=== PATIENT | female | born 1985 ===

== ENCOUNTER 2018-08-02 06:48 | Inpatient (IN) | payer OTHER ==
[2018-08-02] MEDS ORDERED: Sodium Chloride 0.9% 1,000 ML IV ONE ×2 (07:40→09:20)
[2018-08-02] MEDS ORDERED: Sodium Chloride 0.9% 1,000 ML ONE (07:52)
[2018-08-02 08:13] LABS: BASO % 0.3 % (0.0-2.0); HEMOGLOBIN 12.7 g/dL (11.0-16.0); LYMPH # 0.6 K/uL (1.0-4.3); MEAN CELL VOLUME 86.4 fL (81.0-99.0); MEAN CORPUSCULAR HEMOGLOBIN 29.3 pg (27.0-31.0); MEAN CORPUSCULAR HGB CONC 33.9 g/dL (33.0-37.0); MEAN PLATELET VOLUME 7.6 fL (7.2-11.7); MONO # 0.5 K/uL (0.0-0.8); MONO % 3.9 % (0.0-10.0); NEUT % 90.8 % (50.0-75.0); PLATELET COUNT 308 K/uL (130-400); RBC 4.32 Mil/uL (3.80-5.20); RED CELL DISTRIBUTION WIDTH 13.6 % (11.5-14.5); WHITE BLOOD COUNT 12.1 K/uL (4.8-10.8)
[2018-08-02] MEDS ORDERED: Iodixanol 320 MG/ML 100 ML BOTTLE IV ONE (08:17)
[2018-08-02 08:25] LABS: SQUAMOUS EPITHIAL 1 /hpf (0-5); URINE BILIRUBIN NEGATIVE (NEGATIVE); URINE BLOOD 3+ (NEGATIVE); URINE CLARITY Hazy (Clear); URINE COLOR Amber (YELLOW); URINE GLUCOSE (UA) NORMAL (Normal); URINE LEUKOCYTE ESTERASE NEG Leu/uL (Negative); URINE PROTEIN 2+ mg/dL (NEGATIVE)
[2018-08-02 08:28] LABS: HCG,QUALITATIVE URINE NEGATIVE (NEGATIVE)
[2018-08-02 08:31] LABS: ALB/GLOB RATIO 1.2 (1.0-2.1); ALBUMIN 4.1 g/dL (3.5-5.0); ALT/SGPT 19 U/L (9-52); AST/SGOT 12 U/L (14-36); BLOOD UREA NITROGEN 8 mg/dL (7-17); CALCIUM 8.3 mg/dl (8.6-10.4); GFR NON-AFRICAN AMERICAN > 60; LIPASE 16 U/L (23-300)
--- NOTE | 2018-08-02 08:31 | C.PDOC ---
History Of Present Illness The patient reports diffuse abdominal pain which is associated with fever, non- bloody vomiting, and bodyaches which started last night. Denies diarrhea, travel, back pain, symptoms, or any other associated symptoms. No other compl aints at this time. Time Seen by Provider: 08/02/18 07:16 Chief Complaint (Nursing): Fever History Per: Patient History/Exam Limitations: no limitations Past Medical History Reviewed: Historical Data, Nursing Documentation, Vital Signs Vital Signs: Last Vital Signs Temp 101.3 F H 08/02/18 07:10 Pulse 133 H 08/02/18 07:10 Resp 20 08/02/18 07:10 BP 117/79 08/02/18 07:10 Pulse Ox 100 08/02/18 07:10 Family History: States: No Known Family Hx - Social History Hx Alcohol Use: Yes Hx Substance Use: No Review Of Systems Constitutional: Positive for: Fever, Malaise Cardiovascular: Negative for: Chest Pain Respiratory: Negative for: Shortness of Breath Gastrointestinal: Positive for: Nausea, Vomiting Musculoskeletal: Negative for: Back Pain Neurological: Negative for: Weakness, Numbness Physical Exam - Physical Exam Appears: Non-toxic, No Acute Distress (Moderate painful distress) Skin: Warm, Diaphoretic, No Rash Head: Atraumatic, Normacephalic Eye(s): bilateral: Normal Inspection Nose: Normal Oral Mucosa: Moist Lips: Normal Appearing Neck: Normal ROM Chest: Symmetrical Cardiovascular: Rhythm Regular, No Murmur Respiratory: Normal Breath Sounds, No Accessory Muscle Use Gastrointestinal/Abdominal: Soft, Tenderness (moderate, lower quadrant) Extremity: Normal ROM, No Deformity Neurological/Psych: Oriented x3, Normal Speech ED Course And Treatment - Laboratory Results Result Diagrams: 08/02/18 08:04 08/02/18 08:04 O2 Sat by Pulse Oximetry: 100 Pulse Ox Interpretation: Normal (RA) Medical Decision Making Medical Decision Making: Case was discussed with surgery deshaun, surgery resident has evaluated the patient at bedside and state it may be ruptured appendicitis vs. tubovarian abscess. Transvaginal ultrasound ordered. Zosyn IV ordered for possible ruptured AP. Patient was placed NPO. The case was discussed with Dr. Pearl Kemp (OBGYN deshaun) who has evaluated the patient at bedside and agrees to take the patient to the OR. Disposition - Disposition Disposition: HOSPITALIZED Disposition Time: 15:32 Condition: SERIOUS Forms: [facility] (Turkish) - POA Present On Arrival: None - Clinical Impression Clinical Impression: Tubo-ovarian abscess, Bandemia - Scribe Statement The provider has reviewed the documentation as recorded by the Scribe (Isreal Marcus) All medical record entries made by the Scribe were at my direction and personally dictated by me. I have reviewed the chart and agree that the record accurately reflects my personal performance of the history, physical exam, [facility] decision making, and the department course for this patient. I have also personally directed, reviewed, and agree with the discharge instructions and disposition.
[2018-08-02 08:45] LABS: ANISOCYTOSIS SLIGHT; BANDS 14 % (0-2); GIANT PLATELETS PRESENT; LARGE PLATELETS PRESENT; LYMPHOCYTE 4 % (20-40); MONOCYTE 7 % (0-10); NEUTROPHIL 75 % (50-75); PLATELET ESTIMATE NORMAL (NORMAL); TOTAL CELLS COUNTED 100
[2018-08-02 08:46] LABS: TOXIC GRANULATION PRESENT
--- NOTE | 2018-08-02 09:02 | RAD ---
Date of service: 08/02/2018 HISTORY: abd pain, fever COMPARISON: None available. FINDINGS: Patient rotated toward the right. LUNGS: No active pulmonary disease. PLEURA: No significant pleural effusion identified, no pneumothorax apparent. CARDIOVASCULAR: No aortic atherosclerotic calcification present. Normal cardiac size. No pulmonary vascular congestion. OSSEOUS STRUCTURES: No significant abnormalities. VISUALIZED UPPER ABDOMEN: Normal. OTHER FINDINGS: None. IMPRESSION: No acute cardiopulmonary disease appreciated. Patient rotated toward the right.
[2018-08-02 09:30] LABS: VENOUS BLOOD GAS BASE EXCESS -2.4 mmol/L (0.0-2.0); VENOUS BLOOD GAS PCO2 42 mmHg (40-60); VENOUS BLOOD GAS PO2 32 mm/Hg (30-55); VENOUS BLOOD PH 7.35 (7.32-7.43)
--- NOTE | 2018-08-02 10:41 | CT ---
Date of service: 08/02/2018 PROCEDURE: CT Abdomen and Pelvis with contrast HISTORY: diffuse abd pain, fever, vomiting COMPARISON: None. TECHNIQUE: Following the intravenous administration of iodinated contrast material, a CT examination of the abdomen and pelvis performed from the domes of the diaphragms to the symphysis pubis with reformatted datasets provided in axial, sagittal and coronal planes. Oral contrast was not administered as per referring physician request. Coronal and sagittal reformats were generated. contrast dose: Visipaque 320, 100 cc Radiation dose: Total exam DLP = 312.09 mGy-cm. This CT exam was performed using one or more of the following dose reduction techniques: Automated exposure control, adjustment of the mA and/or kV according to patient size, and/or use of iterative reconstruction technique. FINDINGS: LOWER THORAX: Unremarkable. LIVER: Unremarkable. No gross lesion or ductal dilatation. GALLBLADDER AND BILE DUCTS: Unremarkable. PANCREAS: Unremarkable. No gross lesion or ductal dilatation. SPLEEN: Unremarkable. ADRENALS: Unremarkable. No mass. KIDNEYS AND URETERS: Tiny lucency lower pole right kidney too small to characterize. Left kidney appears unremarkable. No obstructive uropathy bilaterally or perinephric reactive change. VASCULATURE: Unremarkable. No aortic aneurysm. No aortic atherosclerotic calcification or mural plaque present. BOWEL: Evaluation of the gastrointestinal tract is compromised due to the lack of oral contrast administration. No bowel obstruction or free intra peritoneal gas collection identified. However, there is a low-density structure with peripheral enhancement identified at the right hemipelvis lateral to the uterus measuring 5.4 x 6.3 x 7.5 cm. Further there is mild thickening of small bowel probably admitted distal segments suggestive of enteritis. Evaluation of the colon is limited however trace pericolic reaction is seen in both pericolic gutters with fluid noted at the left. Is unclear whether this is related to enteritis or potential colitis. The differential diagnosis for the right-sided pelvic finding is abscess or tubo-ovarian abscess, ruptured appendicitis (not favored) and right adnexal neoplasm which is felt to be unlikely APPENDIX: Not identified. LYMPH NODES: Unremarkable. No enlarged lymph nodes. BLADDER: Unremarkable. REPRODUCTIVE: Inhomogeneous uterine enhancement may reflect uterine fibroid disease. Follow-up pelvic ultrasonography can confirm. BONES: No acute fracture. OTHER FINDINGS: None. IMPRESSION: 7.5 cm lesion with peripheral soft tissue and enhancement suspicious for potential abscess. Segmental enteritis is also suggested with enterocolitis possible though not definitive. Lack of oral contrast agents compromise the evaluation. Etiology the abscess is unclear but could reflect tubo-ovarian abscess, ruptured appendicitis or bowel related abscess. Further clinical correlation is advised.
[2018-08-02] MEDS ORDERED: Piperacillin/Tazobact 3.375 gm 100 ML IV STA (10:59)
[2018-08-02] MEDS ORDERED: Piperacillin/Tazobact 3.375 gm 100 ML IVPB ONE (11:18)
[2018-08-02] MEDS ORDERED: metroNIDAZOLE IV 500 mg/100 ml 500 MG/100 ML BAG IVPB SCH (13:15)
[2018-08-02] MEDS: Piperacillin/Tazobact 3.375 GM in Sodium Chloride 100 ML IVPB SCH ×2 (14:53→19:00)
--- NOTE | 2018-08-02 14:55 | CP.PCM.CON ---
<Sophie Rodrigues - Last Filed: 08/02/18 14:50> History of Present Illness - History of Present Illness History of Present Illness: Surgery Consult: Dr. Abel Pt is a 33 y/o female, with no PMHx who presented to the ED with abdominal pain and vomiting x 1 day. Pt states that she started having generalized pain last night all over her abdomen and thought the pain would improve. However, this morning she continued to have pain all over but more severe in the umbilical and RLQ regions. She describes the pain as sharp and constant, becoming so painful (8/10) that she vomited 3x this morning, prompting her to come to ED. She reports taking tylenol and "daytime/nighttime cold&flu" medication, but neither helped relieve the pain. She denies any prior similar episodes or recent travel. LMP began yesterday, 08/01/18. In addition to abdominal pain, she reports feeling "feverish" but denies nausea, diarrhea, constipation (last BM this morning), chest pain, SOB, cough, or history of painful/irregular menstruation/urination. In the ER, pt had a CT abdomen/pelvis which showed 7.5cm fluid collection in the RLQ/pelvis of unclear etiology, tubo-ovarian abscess vs ruptured appendicitis cannot be ruled out. Surgery consulted to evaluate. Currently, pt resting comfortably in ER bed. States her abdominal pain has improved (5/10), but still present. Denies any more episodes of vomiting since coming to the ER. Denies other complaints at this time. PMH: denies PSH: umbilical hernia repair (7 yrs ago) All: NKDA Social: denies any current or prior tobacco use; admits to social alcohol consum ption; denies illicit drug use Review of Systems - Review of Systems All systems: reviewed and no additional remarkable complaints except (as per HPI) Past Patient History - Past Social History Smoking Status: Never Smoked - GASTROINTESTINAL Other/Comment: hernia - PSYCHIATRIC Hx Substance Use: No - SURGICAL HISTORY Hx Surgeries: Yes Hx Herniorrhaphy: Yes (umbilical hernia ) Meds Allergies/Adverse Reactions: Allergies Allergy/AdvReac Type Severity Reaction Status Date / Time No Known Allergies Allergy Verified 08/02/18 07:30 - Medications Medications: Current Medications Acetaminophen (Tylenol 325mg Tab) 325 mg PO Q4H PRN PRN Reason: Pain, moderate (4-7) Metronidazole (Flagyl) 500 mg in 100 mls @ 100 mls/hr IVPB Q8H IMAN; Protocol Piperacillin Sod/Tazobactam (Sod 3.375 gm/ Sodium Chloride) 100 mls @ 200 mls/hr IVPB Q6H IMAN; Protocol Ketorolac Tromethamine (Toradol) 30 mg IVP Q6H PRN PRN Reason: Pain, severe (8-10) Ondansetron HCl (Zofran Inj) 4 mg IVP Q4H PRN PRN Reason: Nausea/Vomiting Physical Exam - Constitutional Appears: Well, No Acute Distress - Head Exam Head Exam: ATRAUMATIC, NORMOCEPHALIC - Eye Exam Eye Exam: Normal appearance - ENT Exam ENT Exam: Mucous Membranes Moist - Respiratory Exam Respiratory Exam: NORMAL BREATHING PATTERN - Cardiovascular Exam Cardiovascular Exam: RRR - GI/Abdominal Exam GI & Abdominal Exam: Soft, Tenderness (most pronounced in the RLQ). absent: Distended, Guarding, Rebound - Extremities Exam Extremities exam: Negative for: tenderness - Neurological Exam Neurological exam: Alert, Oriented x3 - Skin Skin Exam: Dry, Warm Results - Vital Signs Recent Vital Signs: Last Vital Signs Temp 98.8 F 08/02/18 10:40 Pulse 91 H 08/02/18 09:56 Resp 18 08/02/18 09:56 BP 121/55 L 08/02/18 09:56 Pulse Ox 100 08/02/18 11:52 - Labs Result Diagrams: 08/02/18 08:04 08/02/18 08:04 Labs: Laboratory Results - last 24 hr 08/02/18 08/02/18 08/02/18 08:04 08:04 08:04 WBC 12.1 H RBC 4.32 Hgb 12.7 Hct 37.3 MCV 86.4 MCH 29.3 MCHC 33.9 RDW 13.6 Plt Count 308 MPV 7.6 Neut % (Auto) 90.8 H Lymph % (Auto) 5.0 L [place] % (Auto) 3.9 Eos % (Auto) 0.0 Baso % (Auto) 0.3 Neut # (Auto) 11.0 H Lymph # (Auto) 0.6 L [place] # (Auto) 0.5 Eos # (Auto) 0.0 Baso # (Auto) 0.0 Neutrophils % (Manual) 75 Band Neutrophils % 14 H* Lymphocytes % (Manual) 4 L Monocytes % (Manual) 7 Toxic Granulation Present Platelet Estimate Normal Large Platelets Present Giant Platelets Present Anisocytosis (manual) Slight pO2 VBG pH VBG pCO2 VBG HCO3 VBG Total CO2 VBG O2 Sat (Calc) VBG Base Excess VBG Potassium Glucose Lactate Sodium 138 Potassium 3.8 Chloride 102 Carbon Dioxide 22 Anion Gap 18 BUN 8 Creatinine 0.6 L Est GFR ( Amer) > 60 Est GFR (Non-Af Amer) > 60 Random Glucose 131 H Calcium 8.3 L Total Bilirubin 1.8 H AST 12 L ALT 19 Alkaline Phosphatase 45 Total Protein 7.4 Albumin 4.1 Globulin 3.3 Albumin/Globulin Ratio 1.2 Lipase 16 L Venous Blood Potassium Urine Color Madisyn Urine Clarity Hazy Urine pH 5.0 Ur Specific [place] 1.031 H Urine Protein 2+ H Urine Glucose (UA) Normal Urine Ketones Trace Urine Blood 3+ H Urine Nitrate Negative Urine Bilirubin Negative Urine Urobilinogen 4.0 H Ur Leukocyte Esterase Neg Urine WBC (Auto) 5 Urine RBC (Auto) 3744 H Ur Squamous Epith Cells 1 Urine HCG, Qual Negative Influenza Typ A,B (EIA) 08/02/18 08/02/18 09:27 10:19 WBC RBC Hgb Hct MCV MCH MCHC RDW Plt Count MPV Neut % (Auto) Lymph % (Auto) [place] % (Auto) Eos % (Auto) Baso % (Auto) Neut # (Auto) Lymph # (Auto) [place] # (Auto) Eos # (Auto) Baso # (Auto) Neutrophils % (Manual) Band Neutrophils % Lymphocytes % (Manual) Monocytes % (Manual) Toxic Granulation Platelet Estimate Large Platelets Giant Platelets Anisocytosis (manual) pO2 32 VBG pH 7.35 VBG pCO2 42 VBG HCO3 22.0 VBG Total CO2 24.5 VBG O2 Sat (Calc) 70.1 H VBG Base Excess -2.4 L VBG Potassium 3.5 L Glucose 125 H Lactate 1.1 Sodium 136.0 Potassium Chloride 107.0 Carbon Dioxide Anion Gap BUN Creatinine Est GFR ( Amer) Est GFR (Non-Af Amer) Random Glucose Calcium Total Bilirubin AST ALT Alkaline Phosphatase Total Protein Albumin Globulin Albumin/Globulin Ratio Lipase Venous Blood Potassium 3.5 L Urine Color Urine Clarity Urine pH Ur Specific [place] Urine Protein Urine Glucose (UA) Urine Ketones Urine Blood Urine Nitrate Urine Bilirubin Urine Urobilinogen Ur Leukocyte Esterase Urine WBC (Auto) Urine RBC (Auto) Ur Squamous Epith Cells Urine HCG, Qual Influenza Typ A,B (EIA) Negative for flu a/b - Imaging and Cardiology CT scan - abdomen Status: Image reviewed by me, Report reviewed by me Assessment & Plan - Assessment and Plan (Free Text) Assessment: 33F with abdominal pain & intra-abdominal fluid collection/abscess as seen on CT, tubo-ovarian abscess vs perforated appendicitis Plan: - after reviewing CT and as per the report, perforated appendicitis less likely - transvaginal US ordered by ER to further evaluate for adnexal pathology - rec radius grinder evaluation - recommend eval by IR for drainage of intra-peritoneal abscess - broad spectrum IV ABX - keep NPO with IVF - serial abdominal exams - d/w Dr. Abel <Scott Abel - Last Filed: 08/05/18 09:19> Meds - Medications Medications: Current Medications Acetaminophen (Tylenol 325mg Tab) 325 mg PO Q4H PRN PRN Reason: Pain, moderate (4-7) Last Admin: 08/04/18 22:10 Dose: 325 mg Piperacillin Sod/Tazobactam (Sod 3.375 gm/ Sodium Chloride) 100 mls @ 200 mls/hr IVPB Q6H IMAN; Protocol Last Admin: 08/05/18 07:08 Dose: 200 mls/hr Metronidazole (Flagyl) 500 mg in 100 mls @ 100 mls/hr IVPB Q8H IMAN; Protocol Last Admin: 08/05/18 08:45 Dose: 100 mls/hr Morphine Sulfate (Morphine) 4 mg IVP Q4 PRN PRN Reason: Pain, moderate (4-7) Ondansetron HCl (Zofran Inj) 4 mg IVP Q4H PRN PRN Reason: Nausea/Vomiting Pantoprazole Sodium (Protonix Ec Tab) 40 mg PO DAILY IMAN Last Admin: 08/05/18 09:12 Dose: 40 mg Results - Vital Signs Recent Vital Signs: Last Vital Signs Temp 98 F 08/04/18 16:00 Pulse 71 08/04/18 16:00 Resp 18 08/04/18 16:00 BP 106/68 08/04/18 16:00 Pulse Ox 100 08/04/18 16:00 - Labs Result Diagrams: 08/04/18 08:34 08/04/18 08:34 Labs: Laboratory Results - last 24 hr 08/04/18 08:34 CA 125 Antigen 543 H Assessment & Plan - Assessment and Plan (Free Text) Assessment: Agree with above. CT imaging reviewed. Tuboovarian asbcess. 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
--- NOTE | 2018-08-02 14:55 | US ---
Date of service: 08/02/2018 PROCEDURE: PELVIC ULTRASONOGRAPHY HISTORY: RLQ/R pelvic pain, ? Tubovarian absces on CT scan. Urine hCG negative. COMPARISON: Abdomen pelvis CT with contrast 08/02/2018. TECHNIQUE: Transabdominal and transvaginal pelvic ultrasound was performed with longitudinal and transverse images submitted for interpretation. FINDINGS: Seen in the right hemipelvis/right adnexal compartment is a complex cystic lesion measuring 7.3 x 6.3 x 5.9 cm corresponding to the CT finding previously. Moderately increased peripheral blood flow is seen in the wall surrounding the complex fluid collection. Both ovaries appear separate from this structure. Occasional arterial spectral tracings are encountered in the holman of this lesion. No serpiginous lucency is appreciate that would suggest dilated infected right adnexal tubules however tubo-ovarian abscess remains in the differential diagnosis. Cystic neoplasm is also included in the differential diagnosis. Bowel related abscess remains in the differential diagnosis. Presence of peripheral arterial blood flow raises the likelihood of tubo-ovarian abscess or potential cystic neoplasm and decrease the likelihood of bowel related abscess. Urine test negative and ectopic gestation unlikely. The uterus is retroverted measuring 7.7 x 6.7 x 5.9 cm with a mid fundal anterior subserosal myoma partially exophytic measuring 2.6 x 1.6 x 2.1 cm, hypoechoic in overall echotexture and well circumscribed. Myometrial lesions. The cervix grossly nonfocal. Endometrium measures 5 mm thickness and is mildly heterogeneous. Cervix is unremarkable and measures 3 cm. Right ovary measures 4.1 x 2.1 x 2.9 cm. Left ovary measures 4.3 x 2.4 x 2.5 cm. Both ovaries exhibit intra-ovarian arterial blood flow with no torsion appreciable. IMPRESSION: 7.3 cm complex cystic lesion with occasional peripheral arterial blood flow seen in the right adnexal compartment suspicious for potential tubo-ovarian abscess or cystic neoplasm, with the latter not favored. Bowel related abscess is also felt to be less likely but still included in the differential diagnosis. Urine test is negative however confirmation via serum beta HCG testing is advised as ectopic gestation is unlikely but requires further evaluation. Solitary subserosal fibroid mid anterior uterine fundus.
[2018-08-02] MEDS ORDERED: Morphine 4 MG/ML VIAL IVP SCH (18:30)
[2018-08-02] MEDS ORDERED: Morphine 4 MG/ML VIAL IVP PRN (19:06)
[2018-08-02] MEDS: metroNIDAZOLE IV 500 mg/100 ml 500 MG/100 ML BAG IVPB SCH (23:48)
--- NOTE | 2018-08-02 23:59 | CP.PCM.HP ---
History of Present Illness - History of Present Illness History of Present Illness: 33 yo G0 with pelvic pain x 2 days with subjective fevers and suspected TOA on U/S Present on Admission - Present on Admission Any Indicators Present on Admission: No Review of Systems - Constitutional Constitutional: Fever - Reproductive: Female Reproductive:Female: Pelvic Pain Past Patient History - Past Social History Smoking Status: Never Smoked - GASTROINTESTINAL Other/Comment: hernia - PSYCHIATRIC Hx Substance Use: No - SURGICAL HISTORY Hx Surgeries: Yes Hx Herniorrhaphy: Yes (umbilical hernia ) Meds Allergies/Adverse Reactions: Allergies Allergy/AdvReac Type Severity Reaction Status Date / Time No Known Allergies Allergy Verified 08/02/18 07:30 Physical Exam - Constitutional Appears: Well - Respiratory Exam Respiratory Exam: Clear to Auscultation Bilateral, NORMAL BREATHING PATTERN - Cardiovascular Exam Cardiovascular Exam: REGULAR RHYTHM - GI/Abdominal Exam GI & Abdominal Exam: Normal Bowel Sounds, Tenderness (to deep palpation on left side) Results - Vital Signs Recent Vital Signs: Last Vital Signs Temp 100.9 F H 08/02/18 21:25 Pulse 123 H 08/02/18 20:00 Resp 18 08/02/18 20:00 BP 110/70 08/02/18 20:00 Pulse Ox 100 08/02/18 20:00 - Labs Result Diagrams: 08/02/18 08:04 08/02/18 08:04 Labs: Laboratory Results - last 24 hr 08/02/18 08/02/18 08/02/18 08:04 08:04 08:04 WBC 12.1 H RBC 4.32 Hgb 12.7 Hct 37.3 MCV 86.4 MCH 29.3 MCHC 33.9 RDW 13.6 Plt Count 308 MPV 7.6 Neut % (Auto) 90.8 H Lymph % (Auto) 5.0 L [place] % (Auto) 3.9 Eos % (Auto) 0.0 Baso % (Auto) 0.3 Neut # (Auto) 11.0 H Lymph # (Auto) 0.6 L [place] # (Auto) 0.5 Eos # (Auto) 0.0 Baso # (Auto) 0.0 Neutrophils % (Manual) 75 Band Neutrophils % 14 H* Lymphocytes % (Manual) 4 L Monocytes % (Manual) 7 Toxic Granulation Present Platelet Estimate Normal Large Platelets Present Giant Platelets Present Anisocytosis (manual) Slight pO2 VBG pH VBG pCO2 VBG HCO3 VBG Total CO2 VBG O2 Sat (Calc) VBG Base Excess VBG Potassium Glucose Lactate Sodium 138 Potassium 3.8 Chloride 102 Carbon Dioxide 22 Anion Gap 18 BUN 8 Creatinine 0.6 L Est GFR ( Amer) > 60 Est GFR (Non-Af Amer) > 60 Random Glucose 131 H Calcium 8.3 L Total Bilirubin 1.8 H AST 12 L ALT 19 Alkaline Phosphatase 45 Total Protein 7.4 Albumin 4.1 Globulin 3.3 Albumin/Globulin Ratio 1.2 Lipase 16 L Venous Blood Potassium Urine Color Madisyn Urine Clarity Hazy Urine pH 5.0 Ur Specific [place] 1.031 H Urine Protein 2+ H Urine Glucose (UA) Normal Urine Ketones Trace Urine Blood 3+ H Urine Nitrate Negative Urine Bilirubin Negative Urine Urobilinogen 4.0 H Ur Leukocyte Esterase Neg Urine WBC (Auto) 5 Urine RBC (Auto) 3744 H Ur Squamous Epith Cells 1 Urine HCG, Qual Negative Influenza Typ A,B (EIA) Blood Type Antibody Screen 08/02/18 08/02/18 08/02/18 09:27 10:19 19:42 WBC RBC Hgb Hct MCV MCH MCHC RDW Plt Count MPV Neut % (Auto) Lymph % (Auto) [place] % (Auto) Eos % (Auto) Baso % (Auto) Neut # (Auto) Lymph # (Auto) [place] # (Auto) Eos # (Auto) Baso # (Auto) Neutrophils % (Manual) Band Neutrophils % Lymphocytes % (Manual) Monocytes % (Manual) Toxic Granulation Platelet Estimate Large Platelets Giant Platelets Anisocytosis (manual) pO2 32 VBG pH 7.35 VBG pCO2 42 VBG HCO3 22.0 VBG Total CO2 24.5 VBG O2 Sat (Calc) 70.1 H VBG Base Excess -2.4 L VBG Potassium 3.5 L Glucose 125 H Lactate 1.1 Sodium 136.0 Potassium Chloride 107.0 Carbon Dioxide Anion Gap BUN Creatinine Est GFR ( Amer) Est GFR (Non-Af Amer) Random Glucose Calcium Total Bilirubin AST ALT Alkaline Phosphatase Total Protein Albumin Globulin Albumin/Globulin Ratio Lipase Venous Blood Potassium 3.5 L Urine Color Urine Clarity Urine pH Ur Specific [place] Urine Protein Urine Glucose (UA) Urine Ketones Urine Blood Urine Nitrate Urine Bilirubin Urine Urobilinogen Ur Leukocyte Esterase Urine WBC (Auto) Urine RBC (Auto) Ur Squamous Epith Cells Urine HCG, Qual Influenza Typ A,B (EIA) Negative for flu a/b Blood Type O POSITIVE Antibody Screen Negative Assessment & Plan - Assessment and Plan (Free Text) Assessment: A/P: 33 yo with suspected TOA - stable, febrile - TOA - 7.3 cm complex cyst suspicious of TOA on U/S - Zosyn and flagyl given - IV fluids - will consult IR for possible drainage Decision To Admit - Pt Status Changed To: Hospital Disposition Of: Inpatient - Admit Certification Admit to Inpatient:: After my assessment, the patient will require hospitalization for at least two midnights. This is because of the severity of symptoms shown, intensity of services needed, and/or the medical risk in this patient being treated as an outpatient. - InPatient: Physician Admission Certification:: OLGA - . Bed Request Type: CRIME ANALYST
[2018-08-03] MEDS: Piperacillin/Tazobact 3.375 GM in Sodium Chloride 100 ML IVPB SCH ×4 (01:13→20:29)
--- NOTE | 2018-08-03 07:55 | CP.PCM.PN ---
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 Reveles Pt seen and examined at bedside this am. States her abd pain has improved from yesterday, rates it as 6/10 compared to 8/10 on admission. Reports pain made worse only with ambulation in room. Last temp 100.9 overnight. Not feeling subjective fevers or chills currently. Denies passing flatus or having bowel movement since admission. States her lower abd pain is elicited when she voids, but denies burning with urination or dysuria. Objective - Vital Signs/Intake and Output Vital Signs (last 24 hours): Temp Pulse Resp BP Pulse Ox 100.9 F H 123 H 18 110/70 100 08/02/18 21:25 08/02/18 20:00 08/02/18 20:00 08/02/18 20:00 08/02/18 20:00 Intake and Output: 08/03/18 08/03/18 06:59 18:59 Intake Total 1900 Balance 1900 - Medications Medications: Current Medications Acetaminophen (Tylenol 325mg Tab) 325 mg PO Q4H PRN PRN Reason: Pain, moderate (4-7) Last Admin: 08/02/18 21:25 Dose: 325 mg Heparin Sodium (Porcine) (Heparin) 5,000 units SC Q12 IMAN Last Admin: 08/02/18 22:03 Dose: 5,000 units Piperacillin Sod/Tazobactam (Sod 3.375 gm/ Sodium Chloride) 100 mls @ 200 mls/hr IVPB Q6H IMAN; Protocol Last Admin: 08/03/18 07:27 Dose: 200 mls/hr Metronidazole (Flagyl) 500 mg in 100 mls @ 100 mls/hr IVPB Q8H IMAN; Protocol Last Admin: 08/02/18 23:48 Dose: 100 mls/hr Morphine Sulfate (Morphine) 4 mg IVP Q4 PRN PRN Reason: Pain, moderate (4-7) Ondansetron HCl (Zofran Inj) 4 mg IVP Q4H PRN PRN Reason: Nausea/Vomiting Pantoprazole Sodium (Protonix Ec Tab) 40 mg PO DAILY IMAN - Labs Labs: 08/02/18 08:04 08/02/18 08:04 - Constitutional Appears: Non-toxic, No Acute Distress - Head Exam Head Exam: ATRAUMATIC, NORMOCEPHALIC - Eye Exam Eye Exam: EOMI, Normal appearance, PERRL - ENT Exam ENT Exam: Mucous Membranes Moist - Respiratory Exam Respiratory Exam: Clear to Ausculation Bilateral, NORMAL BREATHING PATTERN. absent: Rales, Rhonchi, Wheezes - Cardiovascular Exam Cardiovascular Exam: +S1, +S2. absent: Gallop, Rubs, Murmur - GI/Abdominal Exam GI & Abdominal Exam: Distended, Soft, Tenderness, Hypoactive Bowel Sounds. absent: Organomegaly Additional comments: Diffuse tenderness to palpation in right and left lower quadrants on exam - Extremities Exam Extremities Exam: Full ROM, Normal Capillary Refill, Normal Inspection. absent: Calf Tenderness, Pedal Edema - Neurological Exam Neurological Exam: Alert, Awake, CN II-XII Intact, Oriented x3 - Psychiatric Exam Psychiatric exam: Normal Affect, Normal Mood - Skin Skin Exam: Dry, Intact, Normal Color, Warm Assessment and Plan - Assessment and Plan (Free Text) Assessment: 33 y o no PMHx admitted with suspected TOA. Plan: Febrile overnight, otherwise vitals stable currently WBC 12.1, bands 14 on admission; will trend am CBC Urine and blood cxs pending. C/w Zosyn and Flagyl. Abd/pelvis CT 08/02: 7.5 cm lesion w/ peripheral soft tissue and enhancement suspicious for potential abscess. Segmental enteritis also suggested w/ enterocolitis possible though not definitive. Etiology unclear but could reflect tubo-ovarian abscess, ruptured appendicitis, or bowel-releated abscess. Abd/pelvis/transvaginal U/S 08/02: 7.3 cm complex cystic lesion w/ occasional peripheral arterial blood flow seen in R adnexal compartment suspicious for potential tubo-ovarian abscess or cystic neoplasm. Bowel related abscess less likely but still in differential. Solitary subserosal fibroid mid anterior uterine fundus. Tylenol and Morphine prn for pain control. Continue to monitor bowel function. Will keep pt NPO at this time. IR consulted for possible drainage of abscess, recs appreciated. Gen Surgery consulted, recs appreciated. Plan discussed with Dr. Reveles, attending physician. Alec Lynn, PGY-1 <Nora Reveles - Last Filed: 08/05/18 20:32> Objective - Vital Signs/Intake and Output Vital Signs (last 24 hours): Temp Pulse Resp BP Pulse Ox 100.4 F H 90 22 100/61 99 08/03/18 16:00 08/03/18 16:00 08/03/18 16:00 08/03/18 16:00 08/03/18 16:00 Intake and Output: 08/03/18 08/04/18 18:59 06:59 Intake Total 2019 320 Output Total 0 0 Balance 2019 320 - Medications Medications: Current Medications Acetaminophen (Tylenol 325mg Tab) 325 mg PO Q4H PRN PRN Reason: Pain, moderate (4-7) Last Admin: 08/02/18 21:25 Dose: 325 mg Heparin Sodium (Porcine) (Heparin) 5,000 units SC Q12 IMAN Last Admin: 08/03/18 23:33 Dose: 5,000 units Piperacillin Sod/Tazobactam (Sod 3.375 gm/ Sodium Chloride) 100 mls @ 200 mls/hr IVPB Q6H IMAN; Protocol Last Admin: 08/03/18 20:29 Dose: 200 mls/hr Metronidazole (Flagyl) 500 mg in 100 mls @ 100 mls/hr IVPB Q8H IMAN; Protocol Last Admin: 08/03/18 18:33 Dose: 100 mls/hr Morphine Sulfate (Morphine) 4 mg IVP Q4 PRN PRN Reason: Pain, moderate (4-7) Ondansetron HCl (Zofran Inj) 4 mg IVP Q4H PRN PRN Reason: Nausea/Vomiting Pantoprazole Sodium (Protonix Ec Tab) 40 mg PO DAILY IMAN Last Admin: 08/03/18 09:51 Dose: Not Given - Labs Labs: 08/03/18 08:03 08/02/18 08:04 Assessment and Plan - Assessment and Plan (Free Text) Plan: I have seen and examined this patient with Dr. Lynn and agreed with her Progress Note However, after discussing case with Dr. Michelle, Interventional Radiologist who earlier today had agreed to placed a drainage intravaginally in this patient and now, he is not comfortable at this time with performing this procedure, i agreed with his recommendation of continuing IV Antibiotics for another 24 hours since patient is responding very well. Now her pain is 3-4/10, able to walk, her WBC count down to 8.9 and only low grade temps today. Further discussion with Dr. Michelle brings out his impression that Radiologically, this does not appear to be an acute process and the possibility of Neoplasm could not be excluded completely. Ca125 was ordered. Pt states that she has noted that for the past 2-3 months she had irregular menses for the first time with increasing Dysmenorrhea and abdominal bloating that has gotten progressively worse. Denies any Contraceptive use and states that she has a female partner.
[2018-08-03 08:15] LABS: BASO % 0.3 % (0.0-2.0); EOS % 0.3 % (0.0-4.0); LYMPH # 0.9 K/uL (1.0-4.3); LYMPH % 10.3 % (20.0-40.0); MEAN CELL VOLUME 86.7 fL (81.0-99.0); MEAN CORPUSCULAR HEMOGLOBIN 29.1 pg (27.0-31.0); MEAN CORPUSCULAR HGB CONC 33.6 g/dL (33.0-37.0); MEAN PLATELET VOLUME 7.6 fL (7.2-11.7); MONO # 0.6 K/uL (0.0-0.8); NEUT # 7.3 K/uL (1.8-7.0); NEUT % 82.1 % (50.0-75.0); RBC 3.45 Mil/uL (3.80-5.20); RED CELL DISTRIBUTION WIDTH 13.8 % (11.5-14.5); WHITE BLOOD COUNT 8.9 K/uL (4.8-10.8)
[2018-08-03 08:34] LABS: HEMOGLOBIN 10.1 g/dL (11.0-16.0)
[2018-08-03] MEDS: metroNIDAZOLE IV 500 mg/100 ml 500 MG/100 ML BAG IVPB SCH ×2 (08:36→18:33)
[2018-08-03] MEDS: Pantoprazole 40 mg EC Tab PO SCH (09:51)
--- NOTE | 2018-08-03 12:16 | CP.PCM.PN ---
Addendum entered and electronically signed by Rosemary Verde 08/03/18 16:29: Per Dr. Michelle, based on location of collection, conservative treatment with IV Abx is suggested. Addendum entered and electronically signed by Rosemary Verde 08/03/18 16:17: Patient will go for transvaginal IR drainage tomorrow with Dr. Michelle No surgical intervention indicated at this time Please re-consult as needed Original Note: Subjective - Date & Time of Evaluation Date of Evaluation: 08/03/18 Time of Evaluation: 08:25 - Subjective Subjective: surgery progress note for Dr. Abel Patient examined at bedside. No acute events overnight. Patient remained febrile overnight with temps 100-100.9; patient reports chills. Patient reports improvement in pain. Denies SOB, nausea, dysuria, diarrhea. Objective - Vital Signs/Intake and Output Vital Signs (last 24 hours): Temp Pulse Resp BP Pulse Ox 100.9 F H 123 H 18 110/70 100 08/02/18 21:25 08/02/18 20:00 08/02/18 20:00 08/02/18 20:00 08/02/18 20:00 Intake and Output: 08/03/18 08/03/18 06:59 18:59 Intake Total 1900 Output Total 0 Balance 1900 - Medications Medications: Current Medications Acetaminophen (Tylenol 325mg Tab) 325 mg PO Q4H PRN PRN Reason: Pain, moderate (4-7) Last Admin: 08/02/18 21:25 Dose: 325 mg Heparin Sodium (Porcine) (Heparin) 5,000 units SC Q12 IMAN Last Admin: 08/03/18 10:50 Dose: Not Given Piperacillin Sod/Tazobactam (Sod 3.375 gm/ Sodium Chloride) 100 mls @ 200 mls/hr IVPB Q6H IMAN; Protocol Last Admin: 08/03/18 07:27 Dose: 200 mls/hr Metronidazole (Flagyl) 500 mg in 100 mls @ 100 mls/hr IVPB Q8H IMAN; Protocol Last Admin: 08/03/18 08:36 Dose: 100 mls/hr Morphine Sulfate (Morphine) 4 mg IVP Q4 PRN PRN Reason: Pain, moderate (4-7) Ondansetron HCl (Zofran Inj) 4 mg IVP Q4H PRN PRN Reason: Nausea/Vomiting Pantoprazole Sodium (Protonix Ec Tab) 40 mg PO DAILY IMAN Last Admin: 08/03/18 09:51 Dose: Not Given - Labs Labs: 08/03/18 08:03 08/02/18 08:04 - Constitutional Appears: Non-toxic, No Acute Distress - Head Exam Head Exam: ATRAUMATIC, NORMAL INSPECTION, NORMOCEPHALIC - Eye Exam Eye Exam: EOMI, Normal appearance - ENT Exam ENT Exam: Mucous Membranes Moist, Normal Exam - Neck Exam Neck Exam: Normal Inspection - Respiratory Exam Respiratory Exam: Clear to Ausculation Bilateral, NORMAL BREATHING PATTERN - Cardiovascular Exam Cardiovascular Exam: Tachycardia, REGULAR RHYTHM - GI/Abdominal Exam GI & Abdominal Exam: Soft, Tenderness (tender to palpation lower quadrants, right greatest.), Normal Bowel Sounds - Neurological Exam Neurological Exam: Alert, Awake, Oriented x3 - Psychiatric Exam Psychiatric exam: Normal Affect, Normal Mood - Skin Skin Exam: Dry, Intact, Normal Color, Warm Assessment and Plan - Assessment and Plan (Free Text) Assessment: 33 year old female admitted with abdominal pain Plan: -NPO -TVUS report: 7.3 cm complex cyst of right adnexal compartment suspicious for tubo-ovarian abscess -recommending IR drainage -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 Colten Verde, PGY-1
[2018-08-04] MEDS: Piperacillin/Tazobact 3.375 GM in Sodium Chloride 100 ML IVPB SCH ×4 (02:30→19:35)
[2018-08-04] MEDS: metroNIDAZOLE IV 500 mg/100 ml 500 MG/100 ML BAG IVPB SCH ×4 (02:48→23:57)
[2018-08-04 08:34] VITALS: RESP 18
[2018-08-04 08:39] LABS: BASO % 0.4 % (0.0-2.0); EOS # 0.1 K/uL (0.0-0.7); EOS % 1.2 % (0.0-4.0); HEMOGLOBIN 9.7 g/dL (11.0-16.0); LYMPH # 1.3 K/uL (1.0-4.3); LYMPH % 18.1 % (20.0-40.0); MEAN CORPUSCULAR HEMOGLOBIN 29.3 pg (27.0-31.0); MEAN CORPUSCULAR HGB CONC 34.1 g/dL (33.0-37.0); MEAN PLATELET VOLUME 7.6 fL (7.2-11.7); MONO # 0.4 K/uL (0.0-0.8); MONO % 6.1 % (0.0-10.0); NEUT # 5.2 K/uL (1.8-7.0); NEUT % 74.2 % (50.0-75.0); RBC 3.3 Mil/uL (3.80-5.20); RED CELL DISTRIBUTION WIDTH 13.4 % (11.5-14.5)
[2018-08-04 08:49] LABS: INR 1.3; PROTHROMBIN TIME 14.1 SECONDS (9.7-12.2)
[2018-08-04 08:57] LABS: ALBUMIN 3.2 g/dL (3.5-5.0); ALT/SGPT 19 U/L (9-52); AST/SGOT 19 U/L (14-36); BLOOD UREA NITROGEN 6 mg/dL (7-17); CALCIUM 8.7 mg/dl (8.6-10.4); GFR NON-AFRICAN AMERICAN > 60
[2018-08-04] MEDS: Pantoprazole 40 mg EC Tab PO SCH (09:26)
--- NOTE | 2018-08-04 10:12 | CP.PCM.PN ---
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 Clements Pt seen and examined at bedside this am. Denies any acute complaints this am. Tolerating regular diet well, denies n/v. Last temp 100.4 yesterday afternoon, pt denies fevers or chills currently. Ambulating well, pain well controlled, passing flatus, reports 2 positive BMs since admission. Otherwise denies headach e, dizziness, chest pain, sob, urinary complaints, or other symptoms. Objective - Vital Signs/Intake and Output Vital Signs (last 24 hours): Temp Pulse Resp BP Pulse Ox 98.0 F 83 18 108/73 100 08/04/18 08:23 08/04/18 08:23 08/04/18 08:23 08/04/18 08:23 08/04/18 08:23 Intake and Output: 08/04/18 08/04/18 06:59 18:59 Intake Total 320 Output Total 0 Balance 320 - Medications Medications: Current Medications Acetaminophen (Tylenol 325mg Tab) 325 mg PO Q4H PRN PRN Reason: Pain, moderate (4-7) Last Admin: 08/02/18 21:25 Dose: 325 mg Heparin Sodium (Porcine) (Heparin) 5,000 units SC Q12 IMAN Last Admin: 08/04/18 09:11 Dose: 5,000 units Piperacillin Sod/Tazobactam (Sod 3.375 gm/ Sodium Chloride) 100 mls @ 200 mls/hr IVPB Q6H IMAN; Protocol Last Admin: 08/04/18 08:10 Dose: 200 mls/hr Metronidazole (Flagyl) 500 mg in 100 mls @ 100 mls/hr IVPB Q8H IMAN; Protocol Last Admin: 08/04/18 08:45 Dose: 100 mls/hr Morphine Sulfate (Morphine) 4 mg IVP Q4 PRN PRN Reason: Pain, moderate (4-7) Ondansetron HCl (Zofran Inj) 4 mg IVP Q4H PRN PRN Reason: Nausea/Vomiting Pantoprazole Sodium (Protonix Ec Tab) 40 mg PO DAILY REPLACED BY [facility] Last Admin: 08/03/18 09:51 Dose: Not Given - Labs Labs: 08/04/18 08:34 08/04/18 08:34 PT 14.1 SECONDS (9.7-12.2) H 08/04/18 08:34 INR 1.3 08/04/18 08:34 APTT 29 SECONDS (21-34) 08/04/18 08:34 - Constitutional Appears: Non-toxic, No Acute Distress - Head Exam Head Exam: ATRAUMATIC, NORMOCEPHALIC - Eye Exam Eye Exam: EOMI, Normal appearance, PERRL - ENT Exam ENT Exam: Mucous Membranes Moist - Respiratory Exam Respiratory Exam: Clear to Ausculation Bilateral, NORMAL BREATHING PATTERN. absent: Rales, Rhonchi, Wheezes - Cardiovascular Exam Cardiovascular Exam: REGULAR RHYTHM, +S1, +S2. absent: Gallop, Rubs, Murmur - GI/Abdominal Exam GI & Abdominal Exam: Soft, Normal Bowel Sounds. absent: Distended, Firm, Guarding, Rigid, Organomegaly, Rebound Additional comments: Minimal diffuse tenderness to palpation on exam - Extremities Exam Extremities Exam: Full ROM, Normal Capillary Refill, Normal Inspection. absent: Calf Tenderness, Pedal Edema - Back Exam Back Exam: Full ROM, NORMAL INSPECTION. absent: CVA tenderness (L), CVA tenderness (R), muscle spasm, tenderness - Neurological Exam Neurological Exam: Alert, Awake, CN II-XII Intact, Normal Gait, Oriented x3 - Psychiatric Exam Psychiatric exam: Normal Affect, Normal Mood - Skin Skin Exam: Dry, Intact, Normal Color, Warm Assessment and Plan - Assessment and Plan (Free Text) Assessment: 33 y o no PMHx admitted with suspected TOA. Plan: Afebrile currently, vitals stable. Continue to monitor WBC today 7.0, bands resolved. Blood cxs demonstrating no growth after 24 hrs. C/w Zosyn and Flagyl. Abd/pelvis CT 08/02: 7.5 cm lesion w/ peripheral soft tissue and enhancement suspicious for potential abscess. Segmental enteritis also suggested w/ enterocolitis possible though not definitive. Etiology unclear but could reflect tubo-ovarian abscess, ruptured appendicitis, or bowel-releated abscess. Abd/pelvis/transvaginal U/S 08/02: 7.3 cm complex cystic lesion w/ occasional peripheral arterial blood flow seen in R adnexal compartment suspicious for potential tubo-ovarian abscess or cystic neoplasm. Bowel related abscess less likely but still in differential. Solitary subserosal fibroid mid anterior uterine fundus. Tylenol and Morphine prn for pain control; pt states pain is improving since admission Tolerating regular diet Gen Surgery s/o case. C/w medical management. D/c planning pending clinical improvement. Upon discussion with pt it was revealed that she had a umbilical hernia repair and 1 year prior, was treated for a partial SBO with resection in her home [place] [facility]. Pt states that at that time she was having n/v, abd pain, and blood in stool. Pt seen, examined with, and plan d/w Dr. Clements, attending physician. Alec Lynn, DO PGY-1 <Jolynn Clements - Last Filed: 08/04/18 15:09> Objective - Vital Signs/Intake and Output Vital Signs (last 24 hours): Temp Pulse Resp BP Pulse Ox 98.0 F 83 18 108/73 100 08/04/18 08:23 08/04/18 08:23 08/04/18 08:23 08/04/18 08:23 08/04/18 08:23 Intake and Output: 08/04/18 08/04/18 06:59 18:59 Intake Total 320 125 Output Total 0 Balance 320 125 - Medications Medications: Current Medications Acetaminophen (Tylenol 325mg Tab) 325 mg PO Q4H PRN PRN Reason: Pain, moderate (4-7) Last Admin: 08/04/18 12:36 Dose: 325 mg Heparin Sodium (Porcine) (Heparin) 5,000 units SC Q12 IMAN Last Admin: 08/04/18 09:11 Dose: 5,000 units Piperacillin Sod/Tazobactam (Sod 3.375 gm/ Sodium Chloride) 100 mls @ 200 mls/hr IVPB Q6H IMAN; Protocol Last Admin: 08/04/18 13:32 Dose: 200 mls/hr Metronidazole (Flagyl) 500 mg in 100 mls @ 100 mls/hr IVPB Q8H IMAN; Protocol Last Admin: 08/04/18 08:45 Dose: 100 mls/hr Morphine Sulfate (Morphine) 4 mg IVP Q4 PRN PRN Reason: Pain, moderate (4-7) Ondansetron HCl (Zofran Inj) 4 mg IVP Q4H PRN PRN Reason: Nausea/Vomiting Pantoprazole Sodium (Protonix Ec Tab) 40 mg PO DAILY IMAN Last Admin: 08/04/18 09:26 Dose: 40 mg - Labs Labs: 08/04/18 08:34 08/04/18 08:34 PT 14.1 SECONDS (9.7-12.2) H 08/04/18 08:34 INR 1.3 08/04/18 08:34 APTT 29 SECONDS (21-34) 08/04/18 08:34 Attending/Attestation - Attestation I have personally seen and examined this patient.: Yes I have fully participated in the care of the patient.: Yes I have reviewed all pertinent clinical information, including history, physical exam and plan: Yes Notes (Text): 08/04/18 15:04 Patient seen and evaluated by me with the Resident. I agree with the above. NB: Patient appears to have had some form of GI surgery with resection, after the presentation as described above. Patient is clinically improved. It was impressed upon the patient, in light of solid component to right ovarian/adnexal process, follow up on discharge should be at the hands of salvage engineering technician oncology in the unlikely event of even low malignant potential finding. Patient expressed an understanding and agrees. No questions offered. Patient is clinically stable.
[2018-08-05] MEDS: Piperacillin/Tazobact 3.375 GM in Sodium Chloride 100 ML IVPB SCH ×3 (01:59→14:00)
[2018-08-05] MEDS: metroNIDAZOLE IV 500 mg/100 ml 500 MG/100 ML BAG IVPB SCH ×2 (08:45→16:00)
[2018-08-05] MEDS: Pantoprazole 40 mg EC Tab PO SCH (09:12)
--- NOTE | 2018-08-05 13:24 | CP.PCM.DIS ---
<Alec Lynn - Last Filed: 08/05/18 16:01> Provider - Provider Date of Admission: 08/02/18 18:42 Attending physician: Gene Kemp DO Primary care physician: [facility] [facility] in [facility] Consults: General Surgery - Dr. Abel Interventional Radiology - Dr. Michelle Time Spent in preparation of Discharge (in minutes): 45 Diagnosis - Discharge Diagnosis (1) Tubo-ovarian abscess Status: Acute Hospital Course - Lab Results Lab Results: Micro Results 08/02/18 11:16 Blood Blood Culture - Preliminary NO GROWTH AFTER 3 DAYS 08/02/18 11:10 Blood Blood Culture - Preliminary NO GROWTH AFTER 3 DAYS 08/02/18 10:44 Urine Urine Culture - Final Gram Positive Cocci Most Recent Lab Values WBC 7.0 K/uL (4.8-10.8) 08/04/18 08:34 RBC 3.30 Mil/uL (3.80-5.20) L 08/04/18 08:34 Hgb 9.7 g/dL (11.0-16.0) L 08/04/18 08:34 Hct 28.4 % (34.0-47.0) L 08/04/18 08:34 MCV 86.0 fL (81.0-99.0) 08/04/18 08:34 MCH 29.3 pg (27.0-31.0) 08/04/18 08:34 MCHC 34.1 g/dL (33.0-37.0) 08/04/18 08:34 RDW 13.4 % (11.5-14.5) 08/04/18 08:34 Plt Count 289 K/uL (130-400) 08/04/18 08:34 MPV 7.6 fL (7.2-11.7) 08/04/18 08:34 Neut % (Auto) 74.2 % (50.0-75.0) 08/04/18 08:34 Lymph % (Auto) 18.1 % (20.0-40.0) L 08/04/18 08:34 Graham % (Auto) 6.1 % (0.0-10.0) 08/04/18 08:34 Eos % (Auto) 1.2 % (0.0-4.0) 08/04/18 08:34 Baso % (Auto) 0.4 % (0.0-2.0) 08/04/18 08:34 Neut # (Auto) 5.2 K/uL (1.8-7.0) 08/04/18 08:34 Lymph # (Auto) 1.3 K/uL (1.0-4.3) 08/04/18 08:34 Graham # (Auto) 0.4 K/uL (0.0-0.8) 08/04/18 08:34 Eos # (Auto) 0.1 K/uL (0.0-0.7) 08/04/18 08:34 Baso # (Auto) 0.0 K/uL (0.0-0.2) 08/04/18 08:34 Neutrophils % (Manual) 75 % (50-75) 08/02/18 08:04 Band Neutrophils % 14 % (0-2) H* 08/02/18 08:04 Lymphocytes % (Manual) 4 % (20-40) L 08/02/18 08:04 Monocytes % (Manual) 7 % (0-10) 08/02/18 08:04 Toxic Granulation Present 08/02/18 08:04 Platelet Estimate Normal (NORMAL) 08/02/18 08:04 Large Platelets Present 08/02/18 08:04 Giant Platelets Present 08/02/18 08:04 Anisocytosis (manual) Slight 08/02/18 08:04 PT 14.1 SECONDS (9.7-12.2) H 08/04/18 08:34 INR 1.3 08/04/18 08:34 APTT 29 SECONDS (21-34) 08/04/18 08:34 pO2 32 mm/Hg (30-55) 08/02/18 09:27 VBG pH 7.35 (7.32-7.43) 08/02/18 09:27 VBG pCO2 42 mmHg (40-60) 08/02/18 09:27 VBG HCO3 22.0 mmol/L 08/02/18 09:27 VBG Total CO2 24.5 mmol/L (22-28) 08/02/18 09:27 VBG O2 Sat (Calc) 70.1 % (40-65) H 08/02/18 09:27 VBG Base Excess -2.4 mmol/L (0.0-2.0) L 08/02/18 09:27 VBG Potassium 3.5 mmol/L (3.6-5.2) L 08/02/18 09:27 Sodium 136.0 mmol/l (132-148) 08/02/18 09:27 Chloride 107.0 mmol/L (98-107) 08/02/18 09:27 Glucose 125 mg/dl (65-105) H 08/02/18 09:27 Lactate 1.1 mmol/L (0.7-2.1) 08/02/18 09:27 Sodium 141 mmol/L (132-148) 08/04/18 08:34 Potassium 3.4 mmol/L (3.6-5.2) L 08/04/18 08:34 Chloride 107 mmol/L (98-107) 08/04/18 08:34 Carbon Dioxide 25 mmol/L (22-30) 08/04/18 08:34 Anion Gap 13 (10-20) 08/04/18 08:34 BUN 6 mg/dL (7-17) L 08/04/18 08:34 Creatinine 0.5 mg/dL (0.7-1.2) L 08/04/18 08:34 Est GFR ( Amer) > 60 08/04/18 08:34 Est GFR (Non-Af Amer) > 60 08/04/18 08:34 Random Glucose 119 mg/dL (65-105) H 08/04/18 08:34 Calcium 8.7 mg/dl (8.6-10.4) 08/04/18 08:34 Total Bilirubin 0.8 mg/dL (0.2-1.3) 08/04/18 08:34 AST 19 U/L (14-36) 08/04/18 08:34 ALT 19 U/L (9-52) 08/04/18 08:34 Alkaline Phosphatase 47 U/L (38-126) 08/04/18 08:34 Total Protein 6.5 g/dL (6.3-8.3) 08/04/18 08:34 Albumin 3.2 g/dL (3.5-5.0) L D 08/04/18 08:34 Globulin 3.3 gm/dL (2.2-3.9) 08/04/18 08:34 Albumin/Globulin Ratio 1.0 (1.0-2.1) 08/04/18 08:34 Lipase 16 U/L (23-300) L 08/02/18 08:04 CA 125 Antigen 543 U/mL (0-35) H 08/04/18 08:34 Beta HCG, Quant < 2.39 mIU/ML 08/04/18 08:34 Venous Blood Potassium 3.5 mmol/L (3.6-5.2) L 08/02/18 09:27 Urine Color Madisyn (YELLOW) 08/02/18 08:04 Urine Clarity Hazy (Clear) 08/02/18 08:04 Urine pH 5.0 (5.0-8.0) 08/02/18 08:04 Ur Specific [place] 1.031 (1.003-1.030) H 08/02/18 08:04 Urine Protein 2+ mg/dL (NEGATIVE) H 08/02/18 08:04 Urine Glucose (UA) Normal mg/dL (Normal) 08/02/18 08:04 Urine Ketones Trace mg/dL (NEGATIVE) 08/02/18 08:04 Urine Blood 3+ (NEGATIVE) H 08/02/18 08:04 Urine Nitrate Negative (NEGATIVE) 08/02/18 08:04 Urine Bilirubin Negative (NEGATIVE) 08/02/18 08:04 Urine Urobilinogen 4.0 mg/dL (0.2-1.0) H 08/02/18 08:04 Ur Leukocyte Esterase Neg Barrie/uL (Negative) 08/02/18 08:04 Urine WBC (Auto) 5 /hpf (0-5) 08/02/18 08:04 Urine RBC (Auto) 3744 /hpf (0-3) H 08/02/18 08:04 Ur Squamous Epith Cells 1 /hpf (0-5) 08/02/18 08:04 Urine HCG, Qual Negative (NEGATIVE) 08/02/18 08:04 Influenza Typ A,B (EIA) Negative for flu a/b (NEGATIVE) 08/02/18 10:19 Blood Type O POSITIVE 08/02/18 19:42 Antibody Screen Negative 08/02/18 19:42 - Hospital Course Hospital Course: [employer] Discharge Summary for Dr. Abdirizak Lynn, DO PGY-1 Pt is a 33 y/o female, with no PMHx, visiting from her home country of [facility], who presented to the ED with abdominal pain and vomiting x 1 day on 08/02/18. Pt stated that she started having generalized pain the night prior all over her abdomen and thought the pain would improve. However, on am of admission she continued to have pain all over but more severe in the umbilical and RLQ regions. She described the pain as sharp and constant, becoming so painful (8/10) that she vomited 3x in the am, prompting her to come to ED. She reported taking tylenol and "daytime/nighttime cold&flu" medication, but neither helped relieve the pain. Pt admitted to having hx of this chronic pelvic pain that was present for 3 months with associated bloating and irregular periods. LMP began on 08/01/18. In addition to abdominal pain, she reported feeling "feverish" but denies nausea, diarrhea, constipation (last BM on am of admission), chest pain, SOB, cough, or history of painful/irregular menstruation/urination. Pertinent imaging: Abd/pelvis CT 08/02: 7.5 cm lesion w/ peripheral soft tissue and enhancement suspicious for potential abscess. Segmental enteritis also suggested w/ enterocolitis possible though not definitive. Etiology unclear but could reflect tubo-ovarian abscess, ruptured appendicitis, or bowel-releated abscess. Abd/pelvis/transvaginal U/S 08/02: 7.3 cm complex cystic lesion w/ occasional peripheral arterial blood flow seen in R adnexal compartment suspicious for potential tubo-ovarian abscess or cystic neoplasm. Bowel related abscess less likely but still in differential. Solitary subserosal fibroid mid anterior uterine fundus. Pt was admitted for treatment of suspected tuboovarian abscess. Surgery was consulted to evaluate (Dr. Abel) the pt. Recommended no acute surgical intervention. IR (Dr. Michelle) was consulted for drainage of abscess; stated that area of drainage was too proximal to vascular structures in the pelvis for risk of perforation or hemorrhage, case did not warrant IR drainage at this time. Pt was medically managed with Zosyn and Flagyl for antibiotic coverage. Was on Tylenol and Morphine prn for pain control. Pt had leukocytosis on admission with bandemia which trended down to within normal limits prior to d/c. Blood cultures demonstrated no growth; urine culture grew gram positive cocci. Pt was febrile on admission, which resolved as well. On day of discharge pt was ambulating without concerns, tolerating PO diet, voiding, passing flatus, and had BM. Pain was much better controlled. She was discharged to home in stable condition on 08/15/18. Pt was given prescription for Percocet 1 tab q 6 h prn total of 10 tablets. Instructed to also taken Motrin prn OTC for symptoms as well. Pt wanted to follow up with her OB[facility] [facility] [facility]ER in [facility] after discharge, and was given copy of labs and imaging to bring to her primary doctor. All questions and concerns were addressed with patient, and she was agreeable to plan. Discharge Exam - Head Exam Head Exam: ATRAUMATIC, NORMOCEPHALIC - Eye Exam Eye Exam: EOMI, Normal appearance, PERRL - ENT Exam ENT Exam: Mucous Membranes Moist - Respiratory Exam Respiratory Exam: Clear to PA & Lateral, NORMAL BREATHING PATTERN, UNREMARKABLE. absent: Rales, Rhonchi, Wheezes - Cardiovascular Exam Cardiovascular Exam: REGULAR RHYTHM, +S1, +S2. absent: Gallop, Rubs, Systolic Murmur - GI/Abdominal Exam GI & Abdominal Exam: Normal Bowel Sounds, Soft. absent: Distended, Firm, Guarding, Rebound, Rigid Additional comments: Mild diffuse tenderness to palpation on exam in RLQ and LLQ - Extremities Exam Extremities exam: full ROM, normal capillary refill, normal inspection, pedal pulses present - Back Exam Back exam: FULL ROM, NORMAL INSPECTION. absent: tenderness - Neurological Exam Neurological exam: CN II-XII Intact, Normal Gait, Oriented x3, Reflexes Normal - Psychiatric Exam Psychiatric exam: Normal Affect, Normal Mood - Skin Skin Exam: Dry, Intact, Normal Color, Warm Discharge Plan - Discharge Medications Prescriptions: oxyCODONE/Acetaminophen [Percocet 5/325 mg Tab] 1 ea PO Q6H PRN #10 tab PRN Reason: Pain, Severe (8-10) - Follow Up Plan Condition: SERIOUS Disposition: HOME/ ROUTINE Instructions: Leukocytosis (DC), Leukocytosis (GEN), Abscess (GEN) Additional Instructions: Patient medically stable for discharge to home. Patient to follow-up with her own primary [facility] in [facility] after hospital discharge. Patient instructed to take Percocet as needed for pain symptoms, given script to bring to pharmacy after discharge. Should symptoms recur or worsen, please follow with your primary OB-GENERAL HOUSE WORKER or report to your nearest emergency department. <Nora Reveles - Last Filed: 08/06/18 23:19> Provider - Provider Date of Admission: 08/02/18 18:42 Attending physician: Gene Kemp DO Diagnosis - Discharge Diagnosis (1) Tubo-ovarian mass Status: Acute (2) Tubo-ovarian abscess Status: Acute Hospital Course - Lab Results Lab Results: Micro Results 08/02/18 11:16 Blood Blood Culture - Preliminary NO GROWTH AFTER 4 DAYS 08/02/18 11:10 Blood Blood Culture - Preliminary NO GROWTH AFTER 4 DAYS 08/02/18 10:44 Urine Urine Culture - Final Gram Positive Cocci Most Recent Lab Values WBC 7.0 K/uL (4.8-10.8) 08/04/18 08:34 RBC 3.30 Mil/uL (3.80-5.20) L 08/04/18 08:34 Hgb 9.7 g/dL (11.0-16.0) L 08/04/18 08:34 Hct 28.4 % (34.0-47.0) L 08/04/18 08:34 MCV 86.0 fL (81.0-99.0) 08/04/18 08:34 MCH 29.3 pg (27.0-31.0) 08/04/18 08:34 MCHC 34.1 g/dL (33.0-37.0) 08/04/18 08:34 RDW 13.4 % (11.5-14.5) 08/04/18 08:34 Plt Count 289 K/uL (130-400) 08/04/18 08:34 MPV 7.6 fL (7.2-11.7) 08/04/18 08:34 Neut % (Auto) 74.2 % (50.0-75.0) 08/04/18 08:34 Lymph % (Auto) 18.1 % (20.0-40.0) L 08/04/18 08:34 Graham % (Auto) 6.1 % (0.0-10.0) 08/04/18 08:34 Eos % (Auto) 1.2 % (0.0-4.0) 08/04/18 08:34 Baso % (Auto) 0.4 % (0.0-2.0) 08/04/18 08:34 Neut # (Auto) 5.2 K/uL (1.8-7.0) 08/04/18 08:34 Lymph # (Auto) 1.3 K/uL (1.0-4.3) 08/04/18 08:34 Graham # (Auto) 0.4 K/uL (0.0-0.8) 08/04/18 08:34 Eos # (Auto) 0.1 K/uL (0.0-0.7) 08/04/18 08:34 Baso # (Auto) 0.0 K/uL (0.0-0.2) 08/04/18 08:34 Neutrophils % (Manual) 75 % (50-75) 08/02/18 08:04 Band Neutrophils % 14 % (0-2) H* 08/02/18 08:04 Lymphocytes % (Manual) 4 % (20-40) L 08/02/18 08:04 Monocytes % (Manual) 7 % (0-10) 08/02/18 08:04 Toxic Granulation Present 08/02/18 08:04 Platelet Estimate Normal (NORMAL) 08/02/18 08:04 Large Platelets Present 08/02/18 08:04 Giant Platelets Present 08/02/18 08:04 Anisocytosis (manual) Slight 08/02/18 08:04 PT 14.1 SECONDS (9.7-12.2) H 08/04/18 08:34 INR 1.3 08/04/18 08:34 APTT 29 SECONDS (21-34) 08/04/18 08:34 pO2 32 mm/Hg (30-55) 08/02/18 09:27 VBG pH 7.35 (7.32-7.43) 08/02/18 09:27 VBG pCO2 42 mmHg (40-60) 08/02/18 09:27 VBG HCO3 22.0 mmol/L 08/02/18 09:27 VBG Total CO2 24.5 mmol/L (22-28) 08/02/18 09:27 VBG O2 Sat (Calc) 70.1 % (40-65) H 08/02/18 09:27 VBG Base Excess -2.4 mmol/L (0.0-2.0) L 08/02/18 09:27 VBG Potassium 3.5 mmol/L (3.6-5.2) L 08/02/18 09:27 Sodium 136.0 mmol/l (132-148) 08/02/18 09:27 Chloride 107.0 mmol/L (98-107) 08/02/18 09:27 Glucose 125 mg/dl (65-105) H 08/02/18 09:27 Lactate 1.1 mmol/L (0.7-2.1) 08/02/18 09:27 Sodium 141 mmol/L (132-148) 08/04/18 08:34 Potassium 3.4 mmol/L (3.6-5.2) L 08/04/18 08:34 Chloride 107 mmol/L (98-107) 08/04/18 08:34 Carbon Dioxide 25 mmol/L (22-30) 08/04/18 08:34 Anion Gap 13 (10-20) 08/04/18 08:34 BUN 6 mg/dL (7-17) L 08/04/18 08:34 Creatinine 0.5 mg/dL (0.7-1.2) L 08/04/18 08:34 Est GFR ( Amer) > 60 08/04/18 08:34 Est GFR (Non-Af Amer) > 60 08/04/18 08:34 Random Glucose 119 mg/dL (65-105) H 08/04/18 08:34 Calcium 8.7 mg/dl (8.6-10.4) 08/04/18 08:34 Total Bilirubin 0.8 mg/dL (0.2-1.3) 08/04/18 08:34 AST 19 U/L (14-36) 08/04/18 08:34 ALT 19 U/L (9-52) 08/04/18 08:34 Alkaline Phosphatase 47 U/L (38-126) 08/04/18 08:34 Total Protein 6.5 g/dL (6.3-8.3) 08/04/18 08:34 Albumin 3.2 g/dL (3.5-5.0) L D 08/04/18 08:34 Globulin 3.3 gm/dL (2.2-3.9) 08/04/18 08:34 Albumin/Globulin Ratio 1.0 (1.0-2.1) 08/04/18 08:34 Lipase 16 U/L (23-300) L 08/02/18 08:04 CA 125 Antigen 543 U/mL (0-35) H 08/04/18 08:34 Beta HCG, Quant < 2.39 mIU/ML 08/04/18 08:34 Venous Blood Potassium 3.5 mmol/L (3.6-5.2) L 08/02/18 09:27 Urine Color Madisyn (YELLOW) 08/02/18 08:04 Urine Clarity Hazy (Clear) 08/02/18 08:04 Urine pH 5.0 (5.0-8.0) 08/02/18 08:04 Ur Specific [place] 1.031 (1.003-1.030) H 08/02/18 08:04 Urine Protein 2+ mg/dL (NEGATIVE) H 08/02/18 08:04 Urine Glucose (UA) Normal mg/dL (Normal) 08/02/18 08:04 Urine Ketones Trace mg/dL (NEGATIVE) 08/02/18 08:04 Urine Blood 3+ (NEGATIVE) H 08/02/18 08:04 Urine Nitrate Negative (NEGATIVE) 08/02/18 08:04 Urine Bilirubin Negative (NEGATIVE) 08/02/18 08:04 Urine Urobilinogen 4.0 mg/dL (0.2-1.0) H 08/02/18 08:04 Ur Leukocyte Esterase Neg [place]rie/uL (Negative) 08/02/18 08:04 Urine WBC (Auto) 5 /hpf (0-5) 08/02/18 08:04 Urine RBC (Auto) 3744 /hpf (0-3) H 08/02/18 08:04 Ur Squamous Epith Cells 1 /hpf (0-5) 08/02/18 08:04 Urine HCG, Qual Negative (NEGATIVE) 08/02/18 08:04 Influenza Typ A,B (EIA) Negative for flu a/b (NEGATIVE) 08/02/18 10:19 Blood Type O POSITIVE 08/02/18 19:42 Antibody Screen Negative 08/02/18 19:42 - Hospital Course Hospital Course: At time of discharge, I personally spent time explaining to the patient that perhaps it was only a very early infectious process that resolved significantly faster than usually. However, she was also made fully aware that this could also be a benign mass versus a malignant one. Her elevated Ca 125 of > 500 was concerning and therefore, I reinforced the importance of the need to seek further care [id number]. Advised to seek care perhaps with a GENERAL HOUSE WORKER/Oncologist specialist. Pt verbalized understanding and agreed with recommendation. All of her questions answered to her full satisfaction. Pt lef in Stable and Satisfactory condition. - Date & Time of H&P Date of H&P: 08/06/18 Time of H&P: 13:30
[2018-08-05 16:51] VITALS: BP 105/62; PULSE 80; TEMP 98.3; O2SAT 100
== END 2018-08-05 18:10 | disposition home or self-care (01) | DRG 531 ==
LOC: C.ER 06:48 → C.SDS 15:38 → C.4M 18:42
PROVIDERS: ADMIT Obstetrics & Gynecology; ATTEND Obstetrics & Gynecology
DX: N70.93 Salpingitis and oophoritis, unspecified (principal); K65.1 Peritoneal abscess; D25.2 Subserosal leiomyoma of uterus; D72.825 Bandemia; K52.9 Noninfective gastroenteritis and colitis, unspecified; R18.8 Other ascites; N92.6 Irregular menstruation, unspecified